=== PATIENT | male | born 1975 | race Caucasian/White ===

== ENCOUNTER → 2023-11-26 | Outpatient (CLI) | payer BC ==
[2023-11-26 08:49] LABS: INR 0.9 (<1.2); Partial Thromboplastin Time 25.2 sec (22.0-30.0)
[2023-11-26 10:15] LABS: Basophils # (A) 0.04 X 10*3/uL (0.00-0.10); Basophils % (A) 0.9 %; Eosinophils % (A) 2.2 %; HCT 45.9 % (39.6-50.0); Lymphocytes # (A) 1.72 X 10*3/uL (0.90-5.00); Lymphocytes % (A) 37.3 %; MCH 30.8 pg (27.0-32.0); MCHC 32.7 g/dL (32.0-37.0); MCV 94.3 FL (80.0-97.0); Mean Platelet Volume 10.6 FL (9.5-12.2); NRBC Per 100 WBC 0 X 10*3/uL (0.00-0.01); Neutrophils # (A) 2.14 X 10*3/uL (1.80-7.70); Neutrophils % (A) 46.4 %; Platelet Count 228 X 10*3/uL (140-440); RBC 4.87 X 10*6/uL (4.40-5.60); RDW 13.4 % (11.5-14.5); WBC 4.61 X 10*3/uL (4.50-10.00)
[2023-11-26 10:29] LABS: BUN/Creat Ratio 15.18 Ratio (12.00-20.00); Blood Urea Nitrogen 16.7 mg/dL (9.0-27.0); Calcium 9.5 mg/dL (8.7-10.3); Carbon Dioxide 27.5 mmol/L (21.6-31.8); Chloride 102 mmol/L (96-109); Glucose 102 mg/dL (70-110); Potassium 4.4 mmol/L (3.5-5.5); Sodium 139 mmol/L (135-145)
[2023-11-26 14:50] LABS: Appearance,Urine Clear (Clear); Bilirubin,Urine Negative (Negative); Blood,Urine Negative (Negative); Color,Urine Yellow (Yellow); Ketones,Urine Negative (Negative); Nitrite,Urine Negative (Negative); Specific Gravity,Urine 1.012 (1.001-1.030); Urobilinogen,Urine 0.2 E.U./DL
== END | disposition home or self-care (01) ==
LOC: LABPAT 08:10
PROVIDERS: ATTEND Orthopaedic Surgery Orthopaedic Surgery of the Spine
DX: Z01.812 Encounter for preprocedural laboratory examination (principal); Z22.322 Carrier or suspected carrier of Methicillin resistant Staphylococcus aureus
CPT/HCPCS: 80048; 81003; 85025; 85610; 85730; 86850; 86900; 86901; 87070

== ENCOUNTER 2023-12-05 06:10 | Day surgery (SDC) | payer BC ==
[2023-12-05] MEDS ORDERED: droPERidol 5 MG/2 ML VIAL IVP ONE (06:22)
[2023-12-05] MEDS ORDERED: LIDOCAINE 1% (10MG/ML) FOR IV START INTRADERMA PRN (06:22)
[2023-12-05] MEDS: IV FLUID CONTINUATION 1,000 ML IV ONE ×3 (06:36→10:23)
[2023-12-05] MEDS: ONDANSETRON 4 MG/2 ML VIAL IVP ONE (07:04)
[2023-12-05] MEDS: LACTATED RINGERS 1,000 ML IV SCH (07:24)
[2023-12-05] MEDS ORDERED: ROCURONIUM 10 MG/ML (5 ML VIAL) IV ONE (07:26)
[2023-12-05] MEDS ORDERED: PHENYLEPHRINE-0.9% NACL SYG 1,000 MCG/10 ML SYRINGE ONE (07:26)
[2023-12-05] MEDS ORDERED: SUCCINYLCHOLINE CHLORIDE 200 MG/10 ML VIAL IV ONE (07:26)
[2023-12-05] MEDS ORDERED: MIDAZOLAM 2 MG/2 ML VIAL ONE (07:26)
[2023-12-05] MEDS ORDERED: NEOSTIGMINE 1 MG/ML 10 ML VIAL ONE (07:26)
[2023-12-05] MEDS ORDERED: PROPOFOL 10 MG/ML 20 ML VIAL IV ONE (07:26)
[2023-12-05] MEDS ORDERED: HYDROmorphone (PF) 1 MG/ML ONE (07:26)
[2023-12-05] MEDS ORDERED: diphenhydrAMINE 50 MG/ML 1 ML VIAL ONE (07:26)
[2023-12-05] MEDS ORDERED: LIDOCAINE 1% INJ 10MG/ML (20 ML MDV) ONE (07:26)
[2023-12-05] MEDS ORDERED: fentaNYL (PF) 50 MCG/ML 2 ML AMP ONE (07:26)
[2023-12-05] MEDS ORDERED: DEXAMETHASONE SOD PHOSPHATE 4 MG/ML 1 ML VIAL ONE (07:26)
[2023-12-05] MEDS ORDERED: GLYCOPYRROLATE 0.2 MG/ML 2 ML VIAL ONE (07:26)
[2023-12-05] MEDS: LIDOCAINE 1%-EPI 1:100,000 20 ML VIAL SQ ONE (07:56)
[2023-12-05] MEDS: BUPIVACAINE (PF) 0.25% 30 ML VIAL SQ ONE (07:56)
[2023-12-05] MEDS: ceFAZolin 1,000 MG in SODIUM CHLORIDE 0.9% IRRIGATIO 1,000 ML IRRIGATION PRN (07:56)
[2023-12-05] MEDS: THROMBIN (BOVINE) 5,000 UNIT VIAL TOPICAL ONE (07:56)
[2023-12-05] MEDS: methylPREDNISolone ACETATE 40 MG/ML 1 ML VIAL MISCELLANE ONE (08:25)
[2023-12-05] MEDS ORDERED: HYDROmorphone 0.5 MG/0.5 ML SYRINGE IVP PRN (08:38)
[2023-12-05] MEDS ORDERED: BENZOCAINE/MENTHOL LOZENG 1 EACH LOZENGE MUCOUS MEM PRN (08:38)
[2023-12-05] MEDS ORDERED: ONDANSETRON 4 MG/2 ML VIAL IVP PRN (08:38)
[2023-12-05] MEDS ORDERED: diazePAM 5 MG TAB PO PRN (08:38)
[2023-12-05] MEDS ORDERED: IBUPROFEN 600 MG TAB PO PRN (08:38)
[2023-12-05] MEDS ORDERED: KETOROLAC 15 MG/ML 1 ML VIAL IVP PRN (08:38)
[2023-12-05] MEDS ORDERED: HYDROcodone/APAP 5-325MG 1 EACH TAB PO PRN (08:38)
[2023-12-05] MEDS ORDERED: HYDROmorphone 1 MG/ML 1 ML SYRINGE IVP PRN (08:38)
[2023-12-05] MEDS ORDERED: SODIUM CHLORIDE 0.9% 1,000 ML IV SCH (08:45)
[2023-12-05] MEDS ORDERED: IBUPROFEN 800 MG TAB PO PRN (08:48)
[2023-12-05 08:59] VITALS: TEMP 97.2
--- NOTE | 2023-12-05 08:59 | XR ---
EXAMINATION TYPE: XR lumbar spine 2 or 3V, FL guidance operating room Intraoperative/procedural fluor oscopic services were provided. Total fluoroscopy time is 2 seconds with a total of 2 submitted image s to PACS. Please see the operative/procedural note for further details. DAP: 0.7906 Gycm2
[2023-12-05] MEDS ORDERED: MONTELUKAST 10 MG TAB PO SCH (09:00)
--- NOTE | 2023-12-05 09:00 | P.OP ---
Date of Procedure: 12/05/23 Preoperative Diagnosis: Spinal stenosis L4-5, epidural mass presumed facet cyst L4-5, facet arthrosis L4-5, left lower extremity radiculopathy Postoperative Diagnosis: Spinal stenosis L4-5, epidural mass presumed facet cyst L4-5, facet arthrosis L4-5, left lower extremity radiculopathy Anesthesia: GETA Pathology: other (Products of laminectomy, presumed facet cyst sent to pathology) Condition: stable Disposition: PACU Description of Procedure: BRIEF OPERATIVE NOTE Preoperative Diagnosis: Spinal stenosis L4-5, epidural mass presumed facet cyst L4-5, facet arthrosis L4-5, left lower extremity radiculopathy Postoperative Diagnosis: Same Procedure: Laminectomy and decompression L4-5 Excision of epidural mass L4-5, presumed facet cyst Surgeon: Dr. Bello Nursing Informatics Analyst: Bryon STOLL who is present throughout the entire the case persistence during positioning, dissection, exposure, visualization, and all crucial elements of the case as well as closure. Anesthesia: General anesthesia Estimated blood loss: Approximately 30 cc Complications: None apparent Components implanted: None Disposition: To recovery room in good stable condition. OPERATIVE INDICATIONS The patient has been having issues in their lower back and lower extremities. He has been having significant radicular symptoms at his left lower extremity over the past several months. He was found to have evidence of a facet cyst on the left side at L4-5 which correlated well with his low back and lower extremity symptoms. The patient has been through conservative treatment. He went through various conservative treatments with medication therapy interventional pain management epidural steroid injections without any lasting benefit. We discussed various treatment options including surgery, and the patient wishes to proceed with surgery We discussed the risk, patient's alternatives and benefits of surgery including but not limited to, risk of bleeding risk of infection, risk of need for further surgery, risk of decreased, loss of motion, loss of function, nerve damage, paralysis, heart attack, blindness and . OPERATIVE SUMMARY After discussing all the risks, patient alternatives and benefits at length, the patient elected to proceed with surgical intervention, signed informed consent, and presented for their procedure. The patient was seen and examined in the preoperative holding area and the surgical site was marked. The patient was given antibiotics and brought to the operating room. The patient was sedated and intubated by anesthesia in standard fashion. The patient was positioned on to the operating room table in a prone position on the appropriate frame which was well-padded and well molded. We were careful to pad any bony prominences and pressure points. We were careful to maintain the patient's cervical spine and good neutral alignment and position throughout. The patient was prepped and draped in a normal standard fashion. An appropriate timeout and keystone protocol performed. We were able to proceed with the surgery. Fluoroscopy was utilized to establish the appropriate level. The local wound area was infiltrated with local anesthetic. An incision was made at the midline longitudinally over the appropriate levels at L4-5 approximately 3 cm in length. Dissection was taken down subcutaneously to the level of the fascia which was split midline. Dissection was taken over the lamina. Intraoperative fluoroscopy was taken which showed a marker at the appropriate level of L4-5. With the appropriate level positively confirmed, we were able to proceed with laminectomy. The wound was copiously irrigated and suctioned dry as had been done periodically throughout the case. I performed a laminectomy with a combination of curettes and a high-speed bur and Kerrison rongeurs. A small medial facetectomy was performed again further access. A partial foraminotomy was also performed. Portions of the ligamentum flavum were taken down to expose the dura and traversing nerve root. There was adherence of some tissue at the space and thickening of the ligamentum. There is evidence of cystic mass at the area extending from the facet joint. I was able to tease away the tissue from the dura and then able to remove the thickened ligament and the cystic structure. Portions were passed off and sent to pathology. This gave excellent decompression at the traversing and exiting nerve roots. I was able to mobilize the traversing nerve root and gain access to the disc space. I did not note any significant disc extrusion or herniation causing stenosis from the disc. I felt we had good decompression at the area and that her nerve root was freely mobile. There is no further evidence of facet cyst. There is no evidence of dural tear or leak. Good hemostasis maintained. The wound was copiously irrigated and suctioned dry. Good decompression and discectomy was noted.
[2023-12-05 09:09] VITALS: RESP 16
[2023-12-05] MEDS: HYDROmorphone 0.5 MG/0.5 ML SYRINGE IVP PRN (09:44)
[2023-12-05 11:09] VITALS: BP 120/81; PULSE 61
[2023-12-05] MEDS ORDERED: ACETAMINOPHEN TAB 500 MG TAB PO SCH (12:00)
== END 2023-12-05 11:18 | disposition home or self-care (01) ==
LOC: OR 06:10
PROVIDERS: ATTEND Orthopaedic Surgery Orthopaedic Surgery of the Spine
DX: M48.062 Spinal stenosis, lumbar region with neurogenic claudication (principal); M47.26 Other spondylosis with radiculopathy, lumbar region; M71.38 Other bursal cyst, other site; M51.16 Intervertebral disc disorders with radiculopathy, lumbar region; J45.40 Moderate persistent asthma, uncomplicated; E78.5 Hyperlipidemia, unspecified; E66.09 Other obesity due to excess calories; I10 Essential (primary) hypertension; K21.9 Gastro-esophageal reflux disease without esophagitis; Z88.8 Allergy status to other drugs, medicaments and biological substances; Z88.2 Allergy status to sulfonamides; Z79.899 Other long term (current) drug therapy
CPT/HCPCS: 88304; 72100; 63047; 63267; J2250; J0330; J1200; J1100; J2710; J0690 ×2; J2405; J2001; J3010; J1170 ×2; J2704; J2371; J0665; J1010

== ENCOUNTER 2024-03-05 02:10 | Observation (INO) | payer BC ==
[2024-03-05 02:13] VITALS: TEMP 97.5
[2024-03-05] MEDS: HYDROmorphone 1 MG/ML 1 ML SYRINGE IVP STA (02:26)
[2024-03-05] MEDS: FAMOTIDINE 20 MG/2 ML VIAL IV STA (02:31)
[2024-03-05 02:48] LABS: Basophils % (A) 1 %; Eosinophils # (A) 0.2 k/uL (0-0.7); Eosinophils % (A) 3 %; HCT 46.7 % (39.0-53.0); HGB 15.7 gm/dL (13.0-17.5); Lymphocytes # (A) 3.1 k/uL (1.0-4.8); Lymphocytes % (A) 49 %; MCH 31.5 pg (25.0-35.0); MCHC 33.6 g/dL (31.0-37.0); MCV 93.6 fL (80.0-100.0); Mean Platelet Volume 8.2; Monocytes # (A) 0.5 k/uL (0-1.0); Monocytes % (A) 7 %; Neutrophils # (A) 2.3 k/uL (1.3-7.7); Neutrophils % (A) 37 %; Platelet Count 221 k/uL (150-450); RBC 4.99 m/uL (4.30-5.90); RDW 13.6 % (11.5-15.5); WBC 6.3 k/uL (3.8-10.6)
--- NOTE | 2024-03-05 02:50 | ED ---
General Adult HPI - General Chief complaint: Chest Pain Stated complaint: Chest Pain Time Seen by Provider: 03/05/24 02:14 Source: patient, RN notes reviewed, old records reviewed Mode of arrival: wheelchair Limitations: no limitations - History of Present Illness Initial comments: 48-year-old male presenting for evaluation of chest pain. Pain woke the patient from sleep approximately 10 minutes prior to arrival. This pain did radiate to the shoulders. It was associated with nausea with diaphoresis. No prior history of CAD. No history of hypertension. No chronic medical conditions. Patient is a non-smoker. Pain did radiate to the upper back and shoulders. - Related Data Home Medications Medication Instructions Recorded Confirmed Ibuprofen [Motrin] 800 mg PO Q8H PRN 12/04/23 12/05/23 Montelukast [Singulair] 10 mg PO DAILY 12/04/23 12/05/23 Previous Rx's Medication Instructions Recorded HYDROcodone/APAP 5-325MG [[place] 1 tab PO Q4HR PRN #42 tab 12/05/23 5-325] Allergies Allergy/AdvReac Type Severity Reaction Status Date / Time Sulfa (Sulfonamide Allergy Rash/Hives Verified 03/05/24 02:11 Antibiotics) Review of Systems ROS Statement: Those systems with pertinent positive or pertinent negative responses have been documented in the HPI. ROS Other: All systems not noted in ROS Statement are negative. Past Medical History Past Medical History: Asthma, Hypertension Additional Past Medical History / Comment(s): seasonal allergies, not currently taking BP med.-had some side effects w/most recent one History of Any Multi-Drug Resistant Organisms: None Reported Past Surgical History: Hernia Repair, Tonsillectomy Additional Past Surgical History / Comment(s): lasik eye surg., lump removed from testicle years ago, back Past Anesthesia/Blood Transfusion Reactions: Previous Problems w/ Anesthesia Additional Past Anesthesia/Blood Transfusion Reaction / Comment(s): combative & swinging when waking up, "pure evil" per pt. Past Psychological History: No Psychological Hx Reported Smoking Status: Never smoker Past Alcohol Use History: None Reported Past Drug Use History: None Reported - Past Family History Mother Family Medical History: No Reported History General Exam Limitations: no limitations General appearance: alert, in distress Head exam: Present: atraumatic, normocephalic Eye exam: Present: normal appearance, PERRL ENT exam: Present: normal exam Neck exam: Present: normal inspection. Absent: tenderness, meningismus Respiratory exam: Present: normal lung sounds bilaterally. Absent: respiratory distress, wheezes Cardiovascular Exam: Present: regular rate, normal rhythm GI/Abdominal exam: Present: soft. Absent: distended, tenderness, guarding Extremities exam: Present: other (Symmetric pulses). Absent: pedal edema, calf tenderness Neurological exam: Present: alert, oriented X3, CN II-XII intact. Absent: motor sensory deficit Skin exam: Present: diaphoretic Course Vital Signs 03/05/24 03/05/24 02:12 02:28 Temperature 97.5 F L Pulse Rate 74 66 Respiratory 26 H 20 Rate Blood Pressure 206/167 156/102 O2 Sat by Pulse 99 98 Oximetry Medical Decision Making - Medical Decision Making Was pt. sent in by a medical professional or institution (DODIE Erickson, STAGE SETTING PAINTER APPRENTICE, urgent care, hospital, or usp...) When possible be specific @ -No Did you speak to anyone other than the patient for history (EMS, parent, family, police, friend...)? What history was obtained from this source @ -No Did you review nursing and triage notes (agree or disagree)? Why? @ -I reviewed and agree with nursing and triage notes Were old charts reviewed (outside hosp., previous admission, EMS record, old EKG, old radiological studies, urgent care reports/EKG's, usp records)? Report findings @ -No old charts were reviewed Differential Chest Pain: Stable Angina, Unstable Angina, STEMI, NSTEMI Aortic Dissection, Pneumothorax, Musculoskeletal, Esophageal Spasm GERD, Cholecystitis, Pancreatitis, Zoster, this is not meant to be an all-inclusive list. EKG interpreted by me (3pts min.). @Initial EKG at 0213: Sinus rhythm rate of 67, OR interval 149, QRS duration 85, QTc [address] segment elevation Repeat EKG at 0218: Sinus rhythm rate of 64, OR interval 151, QRS duration 84, QTc [address] segment elevation Repeat EKG at 0223 sinus rhythm rate of 61, OR interval 146, QRS duration 90, QTc 393, no ST segment elevation X-rays interpreted by me (1pt min.). @ -Chest x-ray negative for acute cardiopulmonary findings CT interpreted by me (1pt min.). @ -CT angiography of the chest abdomen pelvis negative for aortic dissection, no acute pathology U/S interpreted by me (1pt. min.). @ -None done What testing was considered but not performed or refused? (CT, X-rays, U/S, labs)? Why? @ -None What meds were considered but not given or refused? Why? @ -None Did you discuss the management of the patient with other professionals (professionals i.e. DrMarta, PA, STAGE SETTING PAINTER APPRENTICE, lab, RT, psych nurse, social media developer, credit negotiator, teacher, chief procurement officer, case management rn)? Give summary @ -Primary care Dr. Cerda has been paged Was smoking cessation discussed for >3mins.? @ -No Was critical care preformed (if so, how long)? @ -No Were there social determinants of health that impacted care today? How? (Homelessness, low income, unemployed, alcoholism, drug addiction, transportation, low edu. Level, literacy, decrease access to med. care, intermediate, rehab)? @ -No Was there de-escalation of care discussed even if they declined (Discuss DNR or withdrawal of care, Hospice)? DNR status @ -No What co-morbidities impacted this encounter? (DM, HTN, Smoking, COPD, CAD, Cancer, CVA, ARF, Chemo, Hep., AIDS, mental health diagnosis, sleep apnea, morbid obesity)? @ -None Was patient admitted / discharged? Hospital course, mention meds given and route, prescriptions, significant lab abnormalities, going to OR and other pertinent info. @ -48-year-old male presenting with chest pain radiating to the upper back. Patient initially is uncomfortable, hypertensive. There is concern both for ACS as well as aortic pathology. Workup is initiated with EKG, lab testing, chest x-ray and CT angiography. Testing in the emergency department is unremarkable. Patient will be observed for serial cardiac testing, cardiology consultation. Undiagnosed new problem with uncertain prognosis? @ -No Drug Therapy requiring intensive monitoring for toxicity (Heparin, Nitro, Insu chaya, Cardizem)? @ -No Were any procedures done? @ -No Diagnosis/symptom? @ -Chest pain Acute, or Chronic, or Acute on Chronic? @Acute Uncomplicated (without systemic symptoms) or Complicated (systemic symptoms)? @ -Default Side effects of treatment? @ -No Exacerbation, Progression, or Severe Exacerbation? @ -No Poses a threat to life or bodily function? How? (Chest pain, USA, CT, pneumonia, PE, COPD, DKA, ARF, appy, cholecystitis, CVA, Diverticulitis, Homicidal, Suicidal, threat to staff... and all critical care pts) @ -Yes, ACS - Lab Data Result diagrams: 03/05/24 02:24 03/05/24 02: Lab Results 03/05/24 03/05/24 03/05/24 Range/Units 02: 02: 02:24 WBC 6.3 (3.8-10.6) k/uL RBC 4.99 (4.30-5.90) m/uL Hgb 15.7 (13.0-17.5) gm/dL Hct 46.7 (39.0-53.0) % MCV 93.6 (80.0-100.0) fL MCH 31.5 (25.0-35.0) pg MCHC 33.6 (31.0-37.0) g/dL RDW 13.6 (11.5-15.5) % Plt Count 221 (150-450) k/uL MPV 8.2 Neutrophils % 37 % Lymphocytes % 49 % Monocytes % 7 % Eosinophils % 3 % Basophils % 1 % Neutrophils # 2.3 (1.3-7.7) k/uL Lymphocytes # 3.1 (1.0-4.8) k/uL Monocytes # 0.5 (0-1.0) k/uL Eosinophils # 0.2 (0-0.7) k/uL Basophils # 0.0 (0-0.2) k/uL PT 10.4 (10.0-12.5) sec INR 0.9 (<1.2) APTT 25.2 (22.0-30.0) sec Sodium 139 (137-145) mmol/L Potassium 4.0 (3.5-5.1) mmol/L Chloride 105 (98-107) mmol/L Carbon Dioxide 26 (22-30) mmol/L Anion Gap 8 mmol/L BUN 15 (9-20) mg/dL Creatinine 1.15 (0.66-1.25) mg/dL Est GFR (CKD-EPI)AfAm 87 (>60 ml/min/1.73 sqM) Est GFR (CKD-EPI)NonAf 75 (>60 ml/min/1.73 sqM) Glucose 94 (74-99) mg/dL Calcium 9.6 (8.4-10.2) mg/dL Magnesium 2.0 (1.6-2.3) mg/dL Total Bilirubin 0.7 (0.2-1.3) mg/dL AST 23 (17-59) U/L ALT 21 (4-49) U/L Alkaline Phosphatase 39 (38-126) U/L Troponin I (0.000-0.034) ng/mL Total Protein 6.6 (6.3-8.2) g/dL Albumin 4.0 (3.5-5.0) g/dL 03/05/24 Range/Units 02:24 WBC (3.8-10.6) k/uL RBC (4.30-5.90) m/uL Hgb (13.0-17.5) gm/dL Hct (39.0-53.0) % MCV (80.0-100.0) fL MCH (25.0-35.0) pg MCHC (31.0-37.0) g/dL RDW (11.5-15.5) % Plt Count (150-450) k/uL MPV Neutrophils % % Lymphocytes % % Monocytes % % Eosinophils % % Basophils % % Neutrophils # (1.3-7.7) k/uL Lymphocytes # (1.0-4.8) k/uL Monocytes # (0-1.0) k/uL Eosinophils # (0-0.7) k/uL Basophils # (0-0.2) k/uL PT (10.0-12.5) sec INR (<1.2) APTT (22.0-30.0) sec Sodium (137-145) mmol/L Potassium (3.5-5.1) mmol/L Chloride (98-107) mmol/L Carbon Dioxide (22-30) mmol/L Anion Gap mmol/L BUN (9-20) mg/dL Creatinine (0.66-1.25) mg/dL Est GFR (CKD-EPI)AfAm (>60 ml/min/1.73 sqM) Est GFR (CKD-EPI)NonAf (>60 ml/min/1.73 sqM) Glucose (74-99) mg/dL Calcium (8.4-10.2) mg/dL Magnesium (1.6-2.3) mg/dL Total Bilirubin (0.2-1.3) mg/dL AST (17-59) U/L ALT (4-49) U/L Alkaline Phosphatase (38-126) U/L Troponin I <0.012 (0.000-0.034) ng/mL Total Protein (6.3-8.2) g/dL Albumin (3.5-5.0) g/dL Disposition Clinical Impression: Chest pain Disposition: ADMITTED IP TO THIS HOSP Condition: Stable Is patient prescribed a controlled substance at d/c from ED?: No Referrals: Merline Cerda DO [REFERRING] - 1-2 days Time of Disposition: 04:33
[2024-03-05 03:00] LABS: INR 0.9 (<1.2); Partial Thromboplastin Time 25.2 sec (22.0-30.0); Prothrombin Time 10.4 sec (10.0-12.5)
[2024-03-05 03:01] LABS: ALT 21 U/L (4-49); AST 23 U/L (17-59); African American GFR (CKD) 87 (>60 ml/min/1.73 sqM); Alkaline Phosphatase 39 U/L (38-126); Anion Gap 8 mmol/L; Blood Urea Nitrogen 15 mg/dL (9-20); Calcium 9.6 mg/dL (8.4-10.2); Carbon Dioxide 26 mmol/L (22-30); Chloride 105 mmol/L (98-107); Glucose 94 mg/dL (74-99); Non-African American GFR(CKD) 75 (>60 ml/min/1.73 sqM); Sodium 139 mmol/L (137-145); Total Bilirubin 0.7 mg/dL (0.2-1.3); Total Protein 6.6 g/dL (6.3-8.2)
--- NOTE | 2024-03-05 03:59 | CT ---
EXAM: CT Angiography Chest Without and With Intravenous Contrast CLINICAL HISTORY: ITS.REASON CT Reason: cp/HTN TECHNIQUE: Axial computed tomographic angiography images of the chest without and with intravenous contrast. CTDI is 98.1 mGy and DLP is 2331.7 mGy-cm. This CT exam was performed using one or more of the following dose reduction techniques: automated exposure control, adjustment of the mA and/or kV according to patient size, and/or use of iterative reconstruction technique. MIP reconstructed images were created and reviewed. COMPARISON: No relevant prior studies available. FINDINGS: Pulmonary arteries: Suboptimal pulmonary artery opacification for exclusion of pulmonary emboli. No obvious central embolism. Aorta: No aortic intramural hematoma, aneurysm, or dissection. Variant aortic arch branch and anterior with direct origin of the left vertebral artery from the arch. Patent great vessels. Lungs: Unremarkable. No mass. No consolidation. Pleural space: Trace pleural effusions. No pneumothorax. Heart: Unremarkable. No cardiomegaly. No significant pericardial effusion. Bones/joints: No acute fracture. No dislocation. Soft tissues: Unremarkable. Lymph nodes: Nodes: Calcified left hilar lymph nodes in keeping with chronic granulomatous disease. No adenopathy. IMPRESSION: 1. No aortic intramural hematoma, aneurysm, or dissection. 2. Trace pleural effusions. EXAM: CT Angiography Abdomen and Pelvis Without and With Intravenous Contrast CLINICAL HISTORY: ITS.REASON CT Reason: cp/HTN TECHNIQUE: Axial computed tomographic angiography images of the abdomen and pelvis without and with intravenous contrast. CTDI is 0 mGy and DLP is 0 mGy-cm. This CT exam was performed using one or more of the following dose reduction techniques: automated exposure control, adjustment of the mA and/or kV according to patient size, and/or use of iterative reconstruction technique. MIP reconstructed images were created and reviewed. COMPARISON: No relevant prior studies available. FINDINGS: VASCULATURE: Aorta: No acute findings. No abdominal aortic aneurysm. No dissection. Celiac trunk and mesenteric arteries: No acute findings. No occlusion or significant stenosis. Renal arteries: No acute findings. No occlusion or significant stenosis. Iliac arteries: No acute findings. No occlusion or significant stenosis. Lung bases: Unremarkable. ABDOMEN: Liver: Unremarkable. No mass. Gallbladder and bile ducts: Unremarkable. No calcified stones. No ductal dilation. Pancreas: Unremarkable. No ductal dilation. No mass. Spleen: Unremarkable. No splenomegaly. Adrenals: Unremarkable. No mass. Kidneys and ureters: No hydronephrosis. No radiopaque stones. Symmetric renal enhancement. Stomach and bowel: Unremarkable. No obstruction. No mucosal thickening. PELVIS: Appendix: Normal appendix. Bladder: Unremarkable. No stones. No mass. Reproductive: Unremarkable as visualized. ABDOMEN and PELVIS: Intraperitoneal space: Unremarkable. No significant fluid collection. No free air. Bones/joints: No acute fracture. No dislocation. Soft tissues: Bilateral fat-containing inguinal hernias. Lymph nodes: Unremarkable. No enlarged lymph nodes. IMPRESSION: 1. No acute findings. 2. No aortic aneurysm or dissection. Aortic branch vessels appear patent.
--- NOTE | 2024-03-05 04:00 | XR ---
EXAM: XR Chest, 1 View CLINICAL HISTORY: ITS.REASON XR Reason: chest pain TECHNIQUE: Frontal view of the chest. COMPARISON: No relevant prior studies available. FINDINGS: Lungs: Unremarkable. No consolidation. Pleural space: Unremarkable. No pleural effusion or pneumothorax. Heart: Unremarkable. No cardiomegaly or pulmonary vascular congestion. Bones/joints: No acute fracture. No dislocation. IMPRESSION: No evidence of acute cardiopulmonary disease.
[2024-03-05] MEDS ORDERED: NALOXONE 0.4 MG/ML 1 ML VIAL IV PRN (04:30)
[2024-03-05] MEDS ORDERED: HYDROmorphone 0.5 MG/0.5 ML SYRINGE IVP PRN (04:30)
[2024-03-05] MEDS ORDERED: ONDANSETRON 4 MG/2 ML VIAL IVP PRN (04:30)
[2024-03-05] MEDS ORDERED: ACETAMINOPHEN TAB 325 MG TAB PO PRN (04:30)
[2024-03-05] MEDS ORDERED: NITROGLYCERIN SL TABS 0.4 MG TAB SUBLINGUAL PRN (04:32)
[2024-03-05] MEDS: ASPIRIN 325 MG TAB PO STA (04:52)
[2024-03-05 05:39] VITALS: RESP 18
--- NOTE | 2024-03-05 10:12 | P.CRDCN ---
History of Present Illness History of present illness: HISTORY OF PRESENT ILLNESS: This is a 48-year-old male with a past medical history significant for back surgery in November. 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 We have been asked to see the patient in consultation for chest pain. Patient examined at the bedside in the emergency room. Patient states he was asleep when he was awoken around 2 AM with chest discomfort. He states the pain was throughout his entire chest and also felt like a stabbing sensation behind his left shoulder blade. He states that he felt like it was hard to breathe or talk. He came to the emergency room for further evaluation. He denies any chest pain or pressure at the time of examination. He denies any shortness of breath. Patient's blood pressure was elevated upon admission with a reading of 206/167. Most recent blood pressure 130/86. He denies any history of hypertension. He states his blood pressure is usually well-controlled at his PCP office with a systolic around [id number]. He denies history of hyperlipidemia or diabetes. He is a non- smoker. DIAGNOSTICS: - EKG reveals sinus mechanism with no signs of acute ischemia - Chest xray negative for acute process - Laboratory data: WBC 6.3. Hemoglobin 15.7. Platelet count 221. D-dimer 0.38. Sodium 139. Potassium 4.0. BUN 15. Creatinine 1.15. Magnesium 2.0. Troponin negative x 3. Lipase 325. - Current home cardiac medications include none REVIEW OF SYSTEMS: At the time of my exam: CONSTITUTIONAL: Denies fever or chills. HEENT: Denies blurred vision, vision changes, or eye pain. Denies hemoptysis CARDIOVASCULAR: Denies chest pain. Denies orthopnea. Denies PND. Denies palpitations RESPIRATORY: Denies shortness of breath. GASTROINTESTINAL: Denies abdominal pain. Denies nausea or vomiting. HEMATOLOGIC: Denies bleeding disorders. GENITOURINARY: Denies any blood in urine. SKIN: Denies pruitis. Denies rash. PHYSICAL EXAM: VITAL SIGNS: Reviewed. GENERAL: Well-developed in no acute distress. HEENT: Head is normocephalic. Pupils are equal, round. Sclerae anicteric. Mucous membranes of the mouth are moist. Neck supple. No JVD or thyromegaly LUNGS: Respirations even and unlabored. Lungs essentially clear to auscultation bilaterally. HEART: Regular rate and rhythm. S1 and S2 heard. ABDOMEN: Soft. Nondistended. Nontender. EXTREMITIES: Normal range of motion. No clubbing or cyanosis. Peripheral pulses intact. No lower extremity edema NEUROLOGIC: Awake and alert. Oriented x 3. ASSESSMENT: Chest pain, troponin negative x 3 Elevated blood pressures, possible systemic hypertension History of laminectomy, November 2023 PLAN: An acute coronary event has been ruled out Obtain 2D echo to assess cardiac structure and function Continue to monitor blood pressures. No addition of antihypertensive medicat ions at this time. Patient states his blood pressure is usually [id number] when he is seen by his PCP. Patient states he does not check his blood pressure at home. Recommend patient keep a log of his blood pressures at home. Patient to undergo stress echocardiogram today If negative, he may be discharged home from a cardiac standpoint Nurse practitioner note has been reviewed by physician. Signing provider agrees with the documented findings, assessment, and plan of care documented by EYE SURGEON as a scribe. Past Medical History Past Medical History: Asthma, Hypertension Additional Past Medical History / Comment(s): seasonal allergies, not currently taking BP med.-had some side effects w/most recent one History of Any Multi-Drug Resistant Organisms: None Reported Past Surgical History: Hernia Repair, Tonsillectomy Additional Past Surgical History / Comment(s): lasik eye surg., lump removed from testicle years ago, back Past Anesthesia/Blood Transfusion Reactions: Previous Problems w/ Anesthesia Additional Past Anesthesia/Blood Transfusion Reaction / Comment(s): combative & swinging when waking up, "pure evil" per pt. Past Psychological History: No Psychological Hx Reported Smoking Status: Never smoker Past Alcohol Use History: None Reported Past Drug Use History: None Reported - Past Family History Mother Family Medical History: No Reported History Medications and Allergies Home Medications Medication Instructions Recorded Confirmed Type Ibuprofen [Motrin] 800 mg PO TID PRN 12/04/23 03/05/24 History Montelukast [Singulair] 10 mg PO HS 12/04/23 03/05/24 History Allergies Allergy/AdvReac Type Severity Reaction Status Date / Time Sulfa (Sulfonamide Allergy Rash/Hives Verified 03/05/24 07:30 Antibiotics) Physical Exam Vitals: Vital Signs Temp Pulse Resp BP Pulse Ox 03/05/24 05:00 80 18 130/86 97 03/05/24 02:28 66 20 156/102 98 03/05/24 02:12 97.5 F L 74 26 H 206/167 99 Intake and Output 03/04/24 03/05/24 03/05/24 22:59 06:59 14:59 Other: Weight 106.594 kg Results 03/05/24 02:24 03/05/24 02:24 Cardiac Enzymes 03/05/24 03/05/24 03/05/24 Range/Units 02:24 02:24 05:37 AST 23 (17-59) U/L Troponin I <0.012 <0.012 (0.000-0.034) ng/mL Coagulation 03/05/24 Range/Units 02:24 PT 10.4 (10.0-12.5) sec APTT 25.2 (22.0-30.0) sec CBC 03/05/24 Range/Units 02:24 WBC 6.3 (3.8-10.6) k/uL RBC 4.99 (4.30-5.90) m/uL Hgb 15.7 (13.0-17.5) gm/dL Hct 46.7 (39.0-53.0) % Plt Count 221 (150-450) k/uL Comprehensive Metabolic Panel 03/05/24 Range/Units 02:24 Sodium 139 (137-145) mmol/L Potassium 4.0 (3.5-5.1) mmol/L Chloride 105 (98-107) mmol/L Carbon Dioxide 26 (22-30) mmol/L BUN 15 (9-20) mg/dL Creatinine 1.15 (0.66-1.25) mg/dL Glucose 94 (74-99) mg/dL Calcium 9.6 (8.4-10.2) mg/dL AST 23 (17-59) U/L ALT 21 (4-49) U/L Alkaline Phosphatase 39 (38-126) U/L Total Protein 6.6 (6.3-8.2) g/dL Albumin 4.0 (3.5-5.0) g/dL Current Medications Generic Name Dose Route Start Last Admin Trade Name Freq PRN Reason Stop Dose Admin Acetaminophen 650 mg 03/05/24 04:30 Acetaminophen Tab 325 Mg Tab PO Q6HR PRN Mild Pain or Fever > 100.5 Hydromorphone HCl 0.5 mg 03/05/24 04:30 Hydromorphone 0.5 Mg/0.5 Ml Syringe IVP Q3HR PRN Moderate Pain (Scale 4 to 6) Naloxone HCl 0.2 mg 03/05/24 04:30 Naloxone 0.4 Mg/Ml 1 Ml Vial IV Q2M PRN Opioid Reversal Nitroglycerin 0.4 mg 03/05/24 04:32 Nitroglycerin Sl Tabs 0.4 Mg Tab SUBLINGUAL Q5M PRN Chest Pain Ondansetron HCl 4 mg 03/05/24 04:30 Ondansetron 4 Mg/2 Ml Vial IVP Q8HR PRN Nausea And Vomiting Intake and Output 03/04/24 03/05/24 03/05/24 22:59 06:59 14:59 Other: Weight 106.594 kg 03/05/24 02:24 03/05/24 02:24
--- NOTE | 2024-03-05 13:17 | CA ---
Stress Echo Report Jesus Sheldon Age: 48 Gender: M : 1975 Exam Date: 03/05/2024 11:17 Exam Location: [facility] Ht (in): 70 Wt (lb): 235 Ordering Physician: Olivia Benito Referring Physician: AUSTIN LEI,, Sheet Cutter: Julianne Gallagher RDCS Technologist Procedure CPT: Indication: CP ICD-9 Codes: Rhythm: Patient History: Chest pain Cardiac Medications: Medications in past 24 hours: Contrast: Definity Stress Results Protocol: Jonathan Total dose(mL): 2 Exercise Duration (min:sec): 10;[address] Depression (mm): Angina Score: Camacho Score: METS: 12.1 Resting HR: 67 Resting BP: 151 / 77 Peak HR: 156 Peak BP: 186 / 96 Max Predicted HR: 172 91 % Max Predicted HR Target HR: 146 Double Product: 89207 Stress Summary: BP Response: Reason for Termination: Reached target heart rate or work-load Cardiac Symptoms: No symptoms ECG Analysis Resting ECG: Stress ECG: Arrhythmia: Echo Analysis Resting Echo: Peak Echo Analysis: MEASUREMENTS (Male/Female) Normal Values CONCLUSIONS Excellent exercise tolerance The patient exercised on the treadmill according to Jonathan protocol for 10 minutes and achieved 12.1 METS The patient achieved 91% of maximum predicted heart rate Normal electrocardiogram and echocardiogram in response to exercise Dr. Austin Lei MD (Electronically Signed) Final Date: 05 March 2024 13:16
--- NOTE | 2024-03-05 13:54 | P.HPIM ---
History of Present Illness H&P Date: 03/05/24 Chief Complaint: chest pressure History and Physical and Discharge Summary: This is a 48-year-old gentleman with past medical history significant for recent back surgery 12/05/2023, asthma, seasonal allergies, obesity presented to the ER with complaints of chest pressure. 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 On admission, presented with hypertension urgency with blood pressure 206/167, currently 130/86. Denies prior history of hypertension and states BP is normally controlled, 120s to 130s. Troponins negative x 3, EKG reported sinus, chest x-ray reported nonacute. Afebrile, WBC 6.3, hemoglobin 15.7, platelets 221, D-dimer 0.38 electrolytes within normal limits, BUN 15, creatinine 1.15. Lipase mildly elevated 325, reports he has recently been consuming high fat diet. No nausea vomiting or abdominal pain. Review of Systems ROS Statement: Those systems with pertinent positive or pertinent negative responses have been documented in the HPI. ROS Other: All systems not noted in ROS Statement are negative. Past Medical History Past Medical History: Asthma, Hypertension Additional Past Medical History / Comment(s): seasonal allergies, not currently taking BP med.-had some side effects w/most recent one History of Any Multi-Drug Resistant Organisms: None Reported Past Surgical History: Hernia Repair, Tonsillectomy Additional Past Surgical History / Comment(s): lasik eye surg., lump removed from testicle years ago, back Past Anesthesia/Blood Transfusion Reactions: Previous Problems w/ Anesthesia Additional Past Anesthesia/Blood Transfusion Reaction / Comment(s): combative & swinging when waking up, "pure evil" per pt. Past Psychological History: No Psychological Hx Reported Smoking Status: Never smoker Past Alcohol Use History: None Reported Past Drug Use History: None Reported - Past Family History Mother Family Medical History: No Reported History Medications and Allergies Home Medications Medication Instructions Recorded Confirmed Type Ibuprofen [Motrin] 800 mg PO TID PRN 12/04/23 03/05/24 History Montelukast [Singulair] 10 mg PO HS 12/04/23 03/05/24 History Allergies Allergy/AdvReac Type Severity Reaction Status Date / Time Sulfa (Sulfonamide Allergy Rash/Hives Verified 03/05/24 07:30 Antibiotics) Physical Exam Vitals: Vital Signs Temp Pulse Resp BP Pulse Ox 03/05/24 05:00 80 18 130/86 97 03/05/24 02:28 66 20 156/102 98 03/05/24 02:12 97.5 F L 74 26 H 206/167 99 Intake and Output 03/04/24 03/05/24 03/05/24 22:59 06:59 14:59 Other: Weight 106.594 kg PHYSICAL EXAM: VITAL SIGNS: [Reviewed] GENERAL: Alert and oriented x 3, sitting up on stretcher, no acute distress HEENT: Normocephalic, atraumatic conjunctivae normal. eyes normal. NECK: Supple, no JVD. No thyroid enlargement. No LNs CARDIOVASCULAR: S1, S2 regular.No murmur RESPIRATION: Unlabored equal air entry, clear to auscultation with bilateral bases diminished. ABDOMEN: Soft, nondistended, nontender . No guarding. no masses palpable. No ascites, No hepatosplenomegaly.Bowel sounds heard. LEGS: No edema. no swelling PSYCHIATRY: Alert and oriented X3, mood and affect normal. NERVOUS SYSTEM: Cranial N 2-12 grossly normal.No focal deficits. Strength and sensation grossly intact.. Skin: Warm and dry, no rash Results CBC & Chem 7: 03/05/24 02:24 03/05/24 02:24 Labs: Abnormal Lab Results - Last 24 Hours (Table) 03/05/24 Range/Units 02:24 Lipase 325 H (23-300) U/L Assessment and Plan Assessment: Chest pain, troponins negative x 3, cardiology following Hypertensive urgency on admission, currently controlled. Obesity, BMI 34 Recent back surgery 12/05/2023 Chronic asthma, seasonal allergies, controlled Plan: Continue on current medication resume ,monitoring and symptomatic tr eatment. Echo pending. Stress test pending. No antihypertensives recommended at this time as per cardiology. continue monitoring outpatient and in clinic. Patient will be discharged home in a stable condition pending negative cardiology testing, final DC recommendations and clearance per cardiology. The impression and plan of care has been dictated as directed. : I performed a history and examination of this patient, discussed the same with the dictator. I agree with the dictator's note ,documented as a scribe. Any additional findings or plans will be noted.
[2024-03-05 14:07] VITALS: BP 137/103; PULSE 80
[2024-03-05 15:05] LABS: Chol/HDL Ratio 3.67 Ratio; LDL Cholesterol,Calculated 112.5 mg/dL (0.0-131.0)
--- NOTE | 2024-03-05 15:44 | CA ---
Transthoracic Echo Report Name: Jesus Sheldon Age: 48 Gender: M : 1975 Exam Date: 03/05/2024 09:51 Exam Location: [facility] Ht (in): 70 Wt (lb): 235 Ordering Physician: Olivia Benito Attending/Referring Phys: [id number], Thong Herbarium Worker Brooke Hoffmann RDCS Procedure CPT: Indications: CP, LV function Cardiac Hx: Technical Quality: Technically difficult study Contrast 1: Definity Total Dose (mL): 2 Contrast 2: Total Dose (mL): MEASUREMENTS (Male / Female) Normal Values 2D ECHO LV Diastolic Diameter PLAX 5.2 cm 4.2 - 5.9 / 3.9 - 5.3 cm LV Systolic Diameter PLAX 3.5 cm IVS Diastolic Thickness 0.9 cm 0.6 - 1.0 / 0.6 - 0.9 cm LVPW Diastolic Thickness 1.0 cm 0.6 - 1.0 / 0.6 - 0.9 cm LV Relative Wall Thickness 0.4 LVOT Diameter 2.3 cm LV Diastolic Volume MOD BP 143.6 cm??? 67 - 155 / 56 - 104 cm??? LV Systolic Volume MOD BP 62.8 cm??? 22 - 58 / 19 - 49 cm??? LV Ejection Fraction MOD BP 56.3 % >= 55 % LV Cardiac Index MOD BP 2114.9 cm???/min???m??? LV Diastolic Volume MOD 4C 143.5 cm??? LV Systolic Volume MOD 4C 65.1 cm??? LV Ejection Fraction MOD 4C 54.6 % LV Cardiac Index MOD 4C 2052.6 cm???/min???m??? LV Diastolic Length 4C 9.5 cm LV Systolic Length 4C 7.6 cm LV Diastolic Volume MOD 2C 134.4 cm??? LV Systolic Volume MOD 2C 60.9 cm??? LV Ejection Fraction MOD 2C 54.7 % LV Cardiac Index MOD 2C 1923.6 cm???/min???m??? LV Diastolic Length 2C 8.9 cm LV Systolic Length 2C 7.6 cm LA Volume 86.9 cm??? 18 - 58 / 22 - 52 cm??? LA Volume Index 37.3 cm???/m??? 16 - 28 cm???/m??? Ascending Aorta Diameter 3.9 cm DOPPLER AV Peak Velocity 125.0 cm/s AV Peak Gradient 6.3 mmHg AV Mean Velocity 88.5 cm/s AV Mean Gradient 3.4 mmHg AV Velocity Time Integral 27.3 cm LVOT Peak Velocity 114.8 cm/s LVOT Peak Gradient 5.3 mmHg LVOT Velocity Time Integral 24.6 cm LVOT Stroke Volume 104.6 cm??? LVOT Stroke Volume Index 46.8 ml/m??? LVOT Cardiac Index 2739.1 cm???/min???m??? AV Area Cont Eq vti 3.8 cm??? AV Area Cont Eq pk 3.9 cm??? MV Area PHT 4.5 cm??? Mitral E Point Velocity 56.4 cm/s Mitral A Point Velocity 64.2 cm/s Mitral E to A Ratio 0.9 MV Deceleration Time 167.0 ms PV Peak Velocity 99.1 cm/s PV Peak Gradient 3.9 mmHg FINDINGS Left Ventricle Left ventricular ejection fraction is estimated at 50 %. Mildly increased left ventricular systolic volume. Left ventricular wall thickness normal. No obvious regional wall motion abnormalities. Right Ventricle Normal right ventricular size and function. Unable to estimate the right ventricular systolic pressure. Right Atrium Normal right atrial size. Left Atrium Moderately increased left atrial volume. Mildly increased left atrial area. Mitral Valve Structurally normal mitral valve. No evidence for mitral valve prolapse. No mitral stenosis. Trace mitral regurgitation. Aortic Valve Trileaflet aortic valve. No aortic valve stenosis or regurgitation. Tricuspid Valve Structurally normal tricuspid valve. No tricuspid stenosis. Trace tricuspid regurgitation. Pulmonic Valve Structurally normal pulmonic valve. No pulmonic stenosis. Trace pulmonic regurgitation. Pericardium No pericardial effusion. Aorta Mildly dilated aortic annulus. Normal ascending aorta. CONCLUSIONS Low normal LV systolic function with EF at 50% Previewed by: Dr. Austin Lei MD (Electronically Signed) Final Date: 05 March 2024 15:43
== END 2024-03-05 14:05 | disposition home or self-care (01) ==
LOC: EC 02:10 → 6NMEDSUR 04:30
PROVIDERS: ADMIT Family Medicine; ATTEND Family Medicine
DX: R07.89 Other chest pain (principal); I16.0 Hypertensive urgency; J45.909 Unspecified asthma, uncomplicated; I10 Essential (primary) hypertension; R68.84 Jaw pain; M79.602 Pain in left arm; M25.512 Pain in left shoulder; R74.8 Abnormal levels of other serum enzymes; E66.9 Obesity, unspecified; Z68.34 Body mass index [BMI] 34.0-34.9, adult; Z79.899 Other long term (current) drug therapy; Z88.2 Allergy status to sulfonamides; Z91.048 Other nonmedicinal substance allergy status; Z98.890 Other specified postprocedural states
CPT/HCPCS: 36415; 71045; 71275; 74174; 80053; 80061; 83690; 83735; 84484; 85025; 85379; 85610; 85730; 93005; 93306; 93351; 96374; 96375; 99284